=== PATIENT | female | born 1990 | race Caucasian/White ===

== ENCOUNTER 2022-02-16 04:59 | Emergency (ER) | payer OTHER ==
[~2022-02-16] VITALS: Ht 167.6 cm; Wt 80.7 kg
[2022-02-16 05:00] VITALS: BP 121/86
[2022-02-16] MEDS ORDERED: GABA-282 PO (05:09)
[2022-02-16 05:41] LABS: BASO # 0.1 10^3/uL (0.0-0.2); BASO % 0.5 % (0.0-1.0); EOS # 0.2 10^3/uL (0.0-0.5); EOS % 1.6 % (0.0-3.0); HEMATOCRIT 44.6 % (36.0-47.0); HEMOGLOBIN 14.6 g/dl (12.0-15.5); LYMPH # 1.1 10^3/uL (1.5-5.0); LYMPH % 8.8 % (24.0-44.0); MEAN CORPUSCULAR HEMOGLOBIN 28.5 pg (27.0-33.0); MEAN CORPUSCULAR HGB CONC 32.7 g/dl (32.0-36.5); MEAN CORPUSCULAR VOLUME 86.9 fl (80.0-96.0); MONO # 1.5 10^3/uL (0.0-0.8); MONO % 11.3 % (2.0-8.0); NEUTROPHILS # 10.1 10^3/uL (1.5-8.5); NEUTROPHILS % 77.6 % (36.0-66.0); PLATELET COUNT, AUTOMATED 362 10^3/uL (150-450); RED BLOOD COUNT 5.13 10^6/uL (4.00-5.40)
[2022-02-16 05:58] LABS: HCG, SERUM QUALITATIVE NEGATIVE (NEGATIVE)
[2022-02-16 06:38] LABS: ALBUMIN 3.6 GM/DL (3.2-5.2); ALT/SGPT 23 U/L (12-78); BILIRUBIN,DIRECT 0.1 MG/DL (0.0-0.2); BILIRUBIN,TOTAL 0.3 MG/DL (0.2-1.0); BLOOD UREA NITROGEN 11 MG/DL (7-18); CALCIUM LEVEL 9.4 MG/DL (8.5-10.1); CARBON DIOXIDE LEVEL 25 MEQ/L (21-32); CHLORIDE LEVEL 105 MEQ/L (98-107); CREATININE FOR GFR 0.78 MG/DL (0.55-1.30); GLOMERULAR FILTRATION RATE > 60.0 (>60); GLUCOSE, FASTING 112 MG/DL (70-100); LIPASE 51 U/L (73-393); POTASSIUM SERUM 4.1 MEQ/L (3.5-5.1); SODIUM LEVEL 138 MEQ/L (136-145)
[2022-02-16] MEDS ORDERED: KETOROLAC 30 MG/ML 1ML VIAL IV ONE (07:20)
[2022-02-16] MEDS ORDERED: ONDANSETRON 4MG 2ML VIAL IV ONE (07:20)
[2022-02-16] MEDS ORDERED: ISOVUE-370 76% 100ML VIAL As Ordered ONE (07:25)
[2022-02-16] MEDS ORDERED: AZIT500T5 PO (12:35)
[2022-02-16] MEDS ORDERED: ONDA4TAB6 PO (12:35)
== END 2022-02-16 10:04 | disposition home or self-care (01) ==
LOC: M ED 04:59
DX: K52.9 Noninfective gastroenteritis and colitis, unspecified (principal); F17.210 Nicotine dependence, cigarettes, uncomplicated; Z79.899 Other long term (current) drug therapy
CPT/HCPCS: 74177; 80048; 80076; 81000; 83605; 83690; 84703; 85025; 85652; 86140; 87086; 87507; 96374; 96375; 99283; J1885; J2405; Q9967

== ENCOUNTER → 2022-08-18 | Outpatient (CLI) | payer OTHER ==
[~2022-08-18] MED LIST: AZIT500T5 PO; GABA-282 PO; ONDA4TAB6 PO
== END ==
LOC: M WUC 12:10
PROVIDERS: ATTEND Chiropractor
DX: M99.02 Segmental and somatic dysfunction of thoracic region (principal); M51.34 Other intervertebral disc degeneration, thoracic region; M50.31 Other cervical disc degeneration, high cervical region; M54.42 Lumbago with sciatica, left side; M99.03 Segmental and somatic dysfunction of lumbar region; M47.812 Spondylosis without myelopathy or radiculopathy, cervical region

== ENCOUNTER 2022-09-13 08:44 | Emergency (ER) | payer OTHER ==
[~2022-09-13] VITALS: Ht 167.6 cm; Wt 70.6 kg
[2022-09-13] MEDS ORDERED: VYVA30CA4 (09:00)
[2022-09-13] MEDS ORDERED: PREG100C (09:00)
[2022-09-13 09:22] LABS: BASO # 0.1 10^3/uL (0.0-0.2); BASO % 0.5 % (0.0-1.0); EOS # 0.1 10^3/uL (0.0-0.5); EOS % 1.3 % (0.0-3.0); HEMATOCRIT 41.2 % (36.0-47.0); HEMOGLOBIN 13.8 g/dl (12.0-15.5); LYMPH # 2.1 10^3/uL (1.5-5.0); LYMPH % 22.4 % (24.0-44.0); MEAN CORPUSCULAR HEMOGLOBIN 28.9 pg (27.0-33.0); MEAN CORPUSCULAR HGB CONC 33.5 g/dl (32.0-36.5); MEAN CORPUSCULAR VOLUME 86.2 fl (80.0-96.0); MONO # 0.6 10^3/uL (0.0-0.8); MONO % 6.1 % (2.0-8.0); NEUTROPHILS # 6.5 10^3/uL (1.5-8.5); NEUTROPHILS % 69.5 % (36.0-66.0); PLATELET COUNT, AUTOMATED 343 10^3/uL (150-450); RED BLOOD COUNT 4.78 10^6/uL (4.00-5.40); WHITE BLOOD COUNT 9.3 10^3/uL (4.0-10.0)
[2022-09-13] MEDS ORDERED: KETOROLAC 30 MG/ML 1ML VIAL IV ONE (09:35)
[2022-09-13] MEDS ORDERED: NS 1,000 ML IV ONE (09:35)
[2022-09-13] MEDS ORDERED: ONDANSETRON 4MG 2ML VIAL IV ONE (09:35)
[2022-09-13] MEDS ORDERED: CIPROFLOXACIN 500MG TABLET PO ONE (11:30)
[2022-09-13] MEDS ORDERED: CIPR-249 PO (11:38)
[2022-09-13] MEDS ORDERED: TAMS1CAP17 PO (11:38)
[2022-09-13] MEDS ORDERED: KETO10TAB PO (11:38)
[2022-09-13] MEDS ORDERED: ONDA4TAB6 PO (11:38)
[2022-09-13 11:47] VITALS: BP 138/84
== END 2022-09-13 12:07 | disposition home or self-care (01) ==
LOC: M ED 08:44
DX: N39.0 Urinary tract infection, site not specified (principal); N20.1 Calculus of ureter; M54.9 Dorsalgia, unspecified; G90.9 Disorder of the autonomic nervous system, unspecified; F17.200 Nicotine dependence, unspecified, uncomplicated; F17.290 Nicotine dependence, other tobacco product, uncomplicated; Z84.1 Family history of disorders of kidney and ureter
CPT/HCPCS: 74176; 80047; 81001; 84702; 85025; 87086; 96361; 96374; 96375; 99284; J1885; J2405